=== PATIENT | female | born 1975 | race Two or more races ===

== ENCOUNTER 2019-04-14 20:04 | Emergency (ER) | payer BC ==
[~2019-04-14] VITALS: Ht 157.5 cm; Wt 49.0 kg
[2019-04-14 21:30] VITALS: BP 111/76
[2019-04-14 22:18] LABS: CLARITY,URINE TURBID; COLOR,URINE RED
[2019-04-14 22:31] LABS: RBC,URINE TNTC /HPF (0-2)
[2019-04-14 22:32] LABS: BACTERIA,URINE FEW /HPF (0-FEW)
[2019-04-14] MEDS ORDERED: PHEN100T82 PO (23:13)
[2019-04-14] MEDS ORDERED: CEPH-264 PO (23:13)
--- NOTE | 2019-04-14 23:13 | PHYS DOC ---
Past Medical History Past Medical History: Hypertension Additional Past Medical Histor: IUD, Alcohol Use: None Adult General Chief Complaint Chief Complaint: URINARY FREQUENCY HPI HPI Patient is a 43 year old female who presents with 1530 today began having blood in her urine and burning with urination. Patient denies nausea, vomiting, fever, body aches, abdominal pain. Review of Systems Review of Systems : dysuria or hematuria [] All other systems were reviewed and found to be within normal limits, except as documented in this note. Physical Exam Physical Exam Constitutional: Well developed, well nourished, no acute distress, non-toxic appearance. [] HENT: Normocephalic, atraumatic, bilateral external ears normal, oropharynx moist, no oral exudates, nose normal. [] Eyes: PERRLA, EOMI, conjunctiva normal, no discharge. [] Neck: Normal range of motion, no tenderness, supple, no stridor. [] Cardiovascular:Heart rate regular rhythm, no murmur [] Lungs & Thorax: Bilateral breath sounds clear to auscultation [] Abdomen: Bowel sounds normal, soft, no tenderness, no masses, no pulsatile masses. [] Skin: Warm, dry, no erythema, no rash. [] Back: No tenderness, no CVA tenderness. [] Extremities: No tenderness, no cyanosis, no clubbing, ROM intact, no edema. [] Neurologic: Alert and oriented X 3, normal motor function, normal sensory function, no focal deficits noted. [] Psychologic: Affect normal, judgement normal, mood normal. Normal Physical Exam[] Current Patient Data Vital Signs Vital Signs Date Time Temp Pulse Resp B/P (MAP) Pulse Ox O2 Delivery O2 Flow Rate FiO2 04/14/19 21:30 98.5 107 18 111/76 (88) 100 Room Air 98.5 Lab Values Laboratory Tests Test 04/14/19 21:25 04/14/19 21:43 Urine Color Red Urine Clarity Turbid Urine pH Urine Specific [place] Urine Protein mg/dL (NEG-TRACE) Urine Glucose (UA) mg/dL (NEG) Urine Ketones (Stick) mg/dL (NEG) Urine Blood (NEG) Urine Nitrite (NEG) Urine Bilirubin (NEG) Urine Urobilinogen Dipstick mg/dL (0.2 mg/dL) Urine Leukocyte Esterase (NEG) Urine RBC Tntc /HPF (0-2) Urine WBC 5-10 /HPF (0-4) Urine Squamous Epithelial Cells None /LPF Urine Bacteria Few /HPF (0-FEW) POC Urine HCG, Qualitative Hcg negative (Negative) EKG EKG [] Radiology/Procedures Radiology/Procedures [] Course & Med Decision Making Course & Med Decision Making Alert and oriented. speaks in full clear sentences. Abdomen soft and nontender. Ambulatory to steady gait. Skin pink warm and dry. Vital signs within normal limits. No CVA tenderness. Afebrile. Dragon Disclaimer Dragon Disclaimer This electronic medical record was generated, in whole or in part, using a voice recognition dictation system. Departure Departure Impression: Primary Impression: UTI (urinary tract infection) Disposition: HOME, SELF-CARE Condition: STABLE Referrals: NO PCP (PCP) Patient Instructions: Urinary Tract Infection Additional Instructions: Follow-up with primary care provider. Drink plenty of fluids. Take medication as prescribed. Remember the Pyridium can turn your urine is orange color. Scripts Phenazopyridine Hcl (PYRIDIUM) 100 Mg Tablet 1 TAB PO TID for urinary discomfort for 3 Days, #9 TAB 0 Refills Prov: LUCIANO SALINAS APRN 04/14/19 Cephalexin (KEFLEX) 500 Mg Capsule 1 CAP PO BID for 7 Days, #14 CAP 0 Refills Prov: LUCIANO SALINAS APRN 04/14/19 Problem Qualifiers Primary Impression: UTI (urinary tract infection) Urinary tract infection type: site unspecified Hematuria presence: with hematuria Qualified Codes: N39.0 - Urinary tract infection, site not specified; R31.9 - Hematuria, unspecified LUCIANO SALINAS [employer] Apr 14, 2019 23:13
== END 2019-04-14 23:55 | disposition home or self-care (01) ==
LOC: ER 20:04
DX: N39.0 Urinary tract infection, site not specified (principal); R31.9 Hematuria, unspecified; R30.0 Dysuria; I10 Essential (primary) hypertension
CPT/HCPCS: 81001; 81025; 87086; 99284